=== PATIENT | female | born 1970 | race Caucasian/White ===

== ENCOUNTER 2016-08-03 09:32 | Emergency (ER) | payer OTHER ==
[2016-08-03 11:06] LABS: HEMOGLOBIN 12.7 gm/dl (12.3-15.3); RED BLOOD COUNT 4.82 M/UL (4.00-5.10); WHITE BLOOD COUNT 10.2 K/UL (4.5-11.0)
[2016-08-03 11:23] LABS: BUN/CREATININE RATIO 12 (0-10)
== END 2016-08-03 16:00 | disposition home or self-care (01) ==
LOC: ER1 09:32
PROVIDERS: Physician Assistant
DX: K59.00 Constipation, unspecified (principal); N83.202 Unspecified ovarian cyst, left side; E87.6 Hypokalemia; E11.9 Type 2 diabetes mellitus without complications; I10 Essential (primary) hypertension; E07.9 Disorder of thyroid, unspecified; Z90.49 Acquired absence of other specified parts of digestive tract; Z88.8 Allergy status to other drugs, medicaments and biological substances; Z79.84 Long term (current) use of oral hypoglycemic drugs; Z79.4 Long term (current) use of insulin; Z79.899 Other long term (current) drug therapy
CPT/HCPCS: 36415; 76830; 80053; 81001; 82150; 83690; 84484; 84703; 85025; 93005; 96361; 96374; 96375; 99284; J1885; J2405; J7030; J7050; Q9962

== ENCOUNTER 2020-06-12 04:07 | Emergency (ER) | payer OTHER ==
[~2020-06-12] VITALS: Ht 172.7 cm; Wt 107.5 kg
[~2020-06-12 04:07] MED LIST: BYDUREON P2 MG/0.65 SQ; CYMBALTA60 MG PO; DEXILANT60 MG PO; FLEXERIL 10 MG10 MG PO; GLUCOPHAGE1000 MG PO; HYDROCHLOROTHIA25 MG PO; IBUPROFEN800 MG PO; JOLIVETTE0.35 MG PO; K-DUR TAB 20 M20 MEQ PO; LEVAQUIN750 MG PO; MACROBID 100 M100 M1 PO; NAPROSYN500 MG PO; NORFLEX 100 MG100 MG PO; ONDANSETRON ODT4 MG SL; PYRIDIUM200 MG PO; STEGLATRO15 MG PO; SYNTHROID112 MCG PO; TORADOL 10 MG T10 MG PO; Voltaren Gel 1 % TOP; ZOFRAN ODT 4 MG4 MG SL
[2020-06-12 05:19] LABS: HEMOGLOBIN 16.3 gm/dl (12.3-15.3); RED BLOOD COUNT 5.39 M/UL (4.00-5.10); WHITE BLOOD COUNT 4.3 K/UL (4.5-11.0)
[2020-06-12 06:38] LABS: BUN/CREATININE RATIO 19 (0-10)
[2020-06-12] MEDS ORDERED: AZITHROMYCIN250 MG PO (09:42)
[2020-06-12] MEDS ORDERED: VENTOLIN HFA 66.7 GM INH (09:42)
== END 2020-06-12 13:40 | disposition home or self-care (01) ==
LOC: ER1 04:07
PROVIDERS: Family Medicine
DX: U07.1 COVID-19 (principal); J12.82 Pneumonia due to coronavirus disease 2019; R11.2 Nausea with vomiting, unspecified; R10.9 Unspecified abdominal pain; M25.552 Pain in left hip; E11.9 Type 2 diabetes mellitus without complications; F17.200 Nicotine dependence, unspecified, uncomplicated; Z88.0 Allergy status to penicillin; Z88.8 Allergy status to other drugs, medicaments and biological substances
CPT/HCPCS: 71045; 80053; 81001; 82550; 82553; 83605; 83690; 84484; 85025; 96374; 96375; 96376; 99284; J1885; J2405; J7030; M0239; Q9965

== ENCOUNTER 2020-11-23 18:21 | Emergency (ER) | payer OTHER ==
[~2020-11-23 18:21] MED LIST changes: +AZITHROMYCIN250 MG PO; +VENTOLIN HFA 66.7 GM INH
== END 2020-11-23 20:47 | disposition left against medical advice (07) ==
LOC: ER1 18:21
DX: Z53.21 Procedure and treatment not carried out due to patient leaving prior to being seen by health care provider (principal)

== ENCOUNTER → 2020-12-05 | Outpatient (CLI) | payer OTHER | LOC: EXRD 10:36 | DX: E03.9 Hypothyroidism, unspecified (principal); E04.1 Nontoxic single thyroid nodule | CPT/HCPCS: 76536 ==

== ENCOUNTER 2021-03-29 06:37 | Emergency (ER) | payer OTHER ==
[2021-03-29 08:04] LABS: HEMOGLOBIN 14.4 gm/dl (12.3-15.3); WHITE BLOOD COUNT 7.5 K/UL (4.5-11.0)
[2021-03-29 08:22] LABS: BUN/CREATININE RATIO 15 (0-10)
[2021-03-29] MEDS ORDERED: PREDNISOLONE ACE5 ML OP ×2 (10:09→10:12)
== END 2021-03-29 10:30 | disposition home or self-care (01) ==
LOC: ER1 06:37
PROVIDERS: Physician Assistant
DX: E11.621 Type 2 diabetes mellitus with foot ulcer (principal); H57.12 Ocular pain, left eye; L97.529 Non-pressure chronic ulcer of other part of left foot with unspecified severity; F17.200 Nicotine dependence, unspecified, uncomplicated; Z90.49 Acquired absence of other specified parts of digestive tract; Z88.0 Allergy status to penicillin; Z88.8 Allergy status to other drugs, medicaments and biological substances
CPT/HCPCS: 73630; 80053; 85025; 85652; 86140; 99283

== ENCOUNTER 2021-04-27 04:08 | Emergency (ER) | payer OTHER ==
[~2021-04-27 04:08] MED LIST changes: +PREDNISOLONE ACE5 ML OP
[2021-04-27 05:06] LABS: HEMOGLOBIN 13.6 gm/dl (12.3-15.3); RED BLOOD COUNT 4.54 M/UL (4.00-5.10)
[2021-04-27 05:30] LABS: BUN/CREATININE RATIO 11 (0-10)
== END 2021-04-27 09:40 | disposition home or self-care (01) ==
LOC: ER1 04:08
PROVIDERS: Student in an Organized Health Care Education/Training Program
DX: J11.1 Influenza due to unidentified influenza virus with other respiratory manifestations (principal); E11.9 Type 2 diabetes mellitus without complications; I10 Essential (primary) hypertension; Z88.0 Allergy status to penicillin; Z20.822 Contact with and (suspected) exposure to COVID-19
CPT/HCPCS: 0240U; 71045; 80048; 82550; 82553; 83874; 84484; 85025; 85379; 85652; 86140; 93005; 94664; 94760; 96374; 96375; 99285; J0780; J1100; J1885

== ENCOUNTER 2021-10-06 11:49 | Emergency (ER) | payer OTHER | END 2021-10-06 13:14 | disposition left against medical advice (07) | LOC: ER1 11:49 | DX: M54.50 Low back pain, unspecified (principal); M54.2 Cervicalgia; R07.9 Chest pain, unspecified; E11.9 Type 2 diabetes mellitus without complications; F17.200 Nicotine dependence, unspecified, uncomplicated; Z88.0 Allergy status to penicillin; Z88.8 Allergy status to other drugs, medicaments and biological substances | CPT/HCPCS: 93005; 99283 ==

== ENCOUNTER → 2021-11-25 | Outpatient (CLI) | payer OTHER | LOC: KOH-I 10:53 | DX: M54.50 Low back pain, unspecified (principal); R05.9 Cough, unspecified; M54.2 Cervicalgia; M48.02 Spinal stenosis, cervical region; M41.9 Scoliosis, unspecified; M47.817 Spondylosis without myelopathy or radiculopathy, lumbosacral region | CPT/HCPCS: 71046; 72040; 72070; 72100 ==